=== PATIENT | male | born 1955 | race Caucasian/White ===

== ENCOUNTER 2019-02-12 23:09 | Emergency (ER) | payer MEDICARE, OTHER ==
[2019-02-12] MEDS ORDERED: Nitrostat 0.4 MG (ED) SL ONE (23:14)
[2019-02-12] MEDS ORDERED: BABY ASPIRIN 81 MG CHEW PO ONE (23:14)
--- NOTE | 2019-02-12 23:21 | ERPHSYRPT ---
- History of Present Illness Time Seen by Provider: 02/12/19 23:13 Historian: patient, family (64-year-old gentleman with a history of present reflux here for chest pain. Patient states his pain started when he was listening to music on the lawn about 45 minutes ago. By the time he got to the ER chest pain was almost resolved. Currently rates it as a 2/10. It was also associated with shortness of breath earlier. None right now. Denies any cardiac history no hypertension diabetes mellitus. Patient quit smoking cigarettes and only smokes cigars at this time. No lightheadedness dizziness. Mild nausea with it. He is due to have his esophagus dilated.) Exam Limitations: no limitations Timing/Duration: today Activities at Onset: none Aspirin Treatment Today: no aspirin today Allergies/Adverse Reactions: No Known Drug Allergies Allergy (Verified 02/12/19 23:34) Home Medications: Omeprazole 20 mg PO DAILY 02/12/19 [History] - Review of Systems Constitutional: No Symptoms Eyes: No Symptoms Ears, Nose, & Throat: No Symptoms Respiratory: Dyspnea Cardiac: Chest Pain Abdominal/Gastrointestinal: No Symptoms Genitourinary Symptoms: No Symptoms Musculoskeletal: No Symptoms Skin: No Symptoms Neurological: No Symptoms Psychological: No Symptoms Endocrine: No Symptoms - Past Medical History Neurological History: No Pertinent History ENT History: No Pertinent History Cardiac History: No Pertinent History Respiratory History: No Pertinent History Endocrine Medical History: No Pertinent History Musculoskeletal History: No Pertinent History GI Medical History: Other (esophageal varices) History: No Pertinent History - Past Surgical History Neuro Surgical History: No Pertinent History Cardiac: No Pertinent History Respiratory: No Pertinent History - Social History Smoking Status: Current every day smoker Patient Lives Alone: No () Significant Family History: no pertinent family hx - Nursing Vital Signs Nursing Vital Signs: Initial Vital Signs Pulse Rate 80 02/12/19 23:11 Respiratory Rate 20 02/12/19 23:11 Blood Pressure 154/85 02/12/19 23:11 O2 Sat by Pulse Oximetry 100 02/12/19 23:11 Pain Scale Pain Intensity 0 - Physical Exam General Appearance: no apparent distress Eye Exam: PERRL/EOMI Ears, Nose, Throat Exam: normal ENT inspection Neck Exam: normal inspection Respiratory Exam: normal breath sounds, No chest tenderness Cardiovascular Exam: regular rate/rhythm, normal heart sounds, normal peripheral pulses Gastrointestinal/Abdomen Exam: soft, normal bowel sounds, No tenderness Back Exam: normal inspection Extremity Exam: normal inspection Neurologic Exam: alert, oriented x 3, cooperative Skin Exam: normal color, warm, dry - Course EKG Interpreted by Me: RATE, Sinus Rhythm, Other (ekg done at 11:12 shows comp RBBB. QR 130, prolonged. rvh.HR 88bpm) Ordered Tests: Active Orders 24 hr Category Date Time Status Feeder Associate STAT Care 02/12/19 23:14 Active EKG-ER Only STAT Care 02/12/19 23:14 Active IV Insertion STAT Care 02/12/19 23:21 Active CHEST 1 VIEW (PORTABLE) Stat Exams 02/12/19 23:14 Taken CBC W DIFF Stat Lab 02/12/19 23:22 Completed CMP Stat Lab 02/12/19 23:22 Completed TROPONIN Q3H Lab 02/12/19 23:22 Completed TROPONIN Q3H Lab 02/13/19 05:16 Completed Medication Summary Discontinued Medications Generic Name Dose Route Start Last Admin Trade Name Freq PRN Reason Stop Dose Admin Al Hydrox/Mg Hydrox/Simethicone Confirm 02/13/19 00:06 Maalox Es 30 Ml Unit Dose Administered 02/13/19 00:07 Dose 30 ml .ROUTE .STK-MED ONE Aspirin 324 mg 02/12/19 23:14 02/12/19 23:20 Baby Aspirin 81 Mg Chew PO 02/12/19 23:15 324 mg STAT ONE Administration Lidocaine HCl Confirm 02/13/19 00:06 Xylocaine Hcl Viscous * Administered 02/13/19 00:07 Dose 15 ml .ROUTE .STK-MED ONE Magnesium Hydroxide 45 ml 02/13/19 00:04 02/13/19 00:10 Gi Cocktail 45 Ml (Maalox/Lidocaine) PO 02/13/19 00:05 45 ml STAT ONE Administration Nitroglycerin 0.4 mg 02/12/19 23:14 02/12/19 23:22 Nitrostat 0.4 Mg (Ed) SL 02/12/19 23:15 0.4 mg STAT ONE Administration Lab/Rad Data: Laboratory Result Diagrams 02/12/19 23:22 02/12/19 23:22 Laboratory Results 02/13/19 02/12/19 02/12/19 Range/Units 05:16 23:22 23:22 WBC (4.0-10.5) K/mm3 RBC (4.1-5.6) M/mm3 Hgb (12.5-18.0) gm/dl Hct (42-50) % MCV (78-100) fl MCH (26-32) pg MCHC (32-36) g/dl RDW (11.5-14.0) % Plt Count (150-450) K/mm3 MPV (6-9.5) fl Gran % (36.0-66.0) % Eos # (Auto) (0-0.5) Absolute Lymphs (auto) (1.0-4.6) Absolute Monos (auto) (0.0-1.3) Lymphocytes % (24.0-44.0) % Monocytes % (0.0-12.0) % Eosinophils % (0.00-5.0) % Basophils % (0.0-0.4) % Absolute Granulocytes (1.4-6.9) Basophils # (0-0.4) Sodium 143 (137-145) mmol/L Potassium 3.9 (3.5-5.1) mmol/L Chloride 112 H (98-107) mmol/L Carbon Dioxide 22 (22-30) mmol/L Anion Gap 12.9 (5-15) MEQ/L BUN 17 (9-20) mg/dL Creatinine 1.21 (0.66-1.25) mg/dL Estimated GFR > 60.0 ML/MIN Glucose 104 (74-106) mg/dL Calcium 8.9 (8.4-10.2) mg/dL Total Bilirubin 0.30 (0.2-1.3) mg/dL AST 24 (17-59) U/L ALT 15 (0-50) U/L Alkaline Phosphatase 69 (38-126) U/L Troponin I < 0.012 < 0.012 (0.000-0.034) ng/mL Serum Total Protein 7.6 (6.3-8.2) g/dL Albumin 4.1 (3.5-5.0) g/dL 02/12/19 Range/Units 23:22 WBC 12.9 H (4.0-10.5) K/mm3 RBC 4.08 L (4.1-5.6) M/mm3 Hgb 13.1 (12.5-18.0) gm/dl Hct 39.4 L (42-50) % MCV 96.6 (78-100) fl MCH 32.1 H (26-32) pg MCHC 33.2 (32-36) g/dl RDW 15.0 H (11.5-14.0) % Plt Count 194 (150-450) K/mm3 MPV 9.5 (6-9.5) fl Gran % 72.3 H (36.0-66.0) % Eos # (Auto) 0.22 (0-0.5) Absolute Lymphs (auto) 2.66 (1.0-4.6) Absolute Monos (auto) 0.64 (0.0-1.3) Lymphocytes % 20.6 L (24.0-44.0) % Monocytes % 5.0 (0.0-12.0) % Eosinophils % 1.7 (0.00-5.0) % Basophils % 0.4 (0.0-0.4) % Absolute Granulocytes 9.34 H (1.4-6.9) Basophils # 0.05 (0-0.4) Sodium (137-145) mmol/L Potassium (3.5-5.1) mmol/L Chloride (98-107) mmol/L Carbon Dioxide (22-30) mmol/L Anion Gap (5-15) MEQ/L BUN (9-20) mg/dL Creatinine (0.66-1.25) mg/dL Estimated GFR ML/MIN Glucose (74-106) mg/dL Calcium (8.4-10.2) mg/dL Total Bilirubin (0.2-1.3) mg/dL AST (17-59) U/L ALT (0-50) U/L Alkaline Phosphatase (38-126) U/L Troponin I (0.000-0.034) ng/mL Serum Total Protein (6.3-8.2) g/dL Albumin (3.5-5.0) g/dL - Progress Progress: improved (11:35 pm- asa 324 given. cp free before he got the first nitro, was still given. vitals stable/ if troponin negative I will watch him for another 6 hours and repeat troponin. ), re-examined (5:45 am-pt hasnt had any cp. repeat troponin neg. most likely related to barretts. will need to f/u with pcp/project control manager for possible stress test. rec no smoking. asa 81 daily) Air Movement: good Progress Note: 02/13/19 05:50 Blood Culture(s) Obtained: No Antibiotics given: No Will see patient in: other Counseled pt/family regarding: lab results, diagnosis, need for follow-up, rad results, smoking cessation - Departure Departure Disposition: Home Clinical Impression: Gonzales esophagus Chest pain Qualifiers: Chest pain type: unspecified Qualified Code(s): R07.9 - Chest pain, unspecified Condition: Stable Critical Care Time: No Referrals: DOCTOR,NO FAMILY [Primary Care Provider] -
[2019-02-12 23:25] LABS: BASOPHIL % 0.4 % (0.0-0.4); Basophil (Absolute #) 0.05 (0-0.4); Eosinophil % 1.7 % (0.00-5.0); Eosinophil (Absolute #) 0.22 (0-0.5); Granulocyte Absolute (ANC) 9.34 (1.4-6.9); Granulocytes % 72.3 % (36.0-66.0); Hematocrit 39.4 % (42-50); Hemoglobin 13.1 gm/dl (12.5-18.0); Lymphocyte (Absolute #) 2.66 (1.0-4.6); Lymphocytes % 20.6 % (24.0-44.0); Mean Cell Volume 96.6 fl (78-100); Mean Corpuscular Hemoglobin 32.1 pg (26-32); Mean Corpuscular Hgb Concent. 33.2 g/dl (32-36); Mean Platelet Volume 9.5 fl (6-9.5); Monocyte (Absolute #) 0.64 (0.0-1.3); Platelet Count 194 K/mm3 (150-450); Red Blood Count 4.08 M/mm3 (4.1-5.6); White Blood Count 12.9 K/mm3 (4.0-10.5)
[2019-02-12 23:36] LABS: ALBUMIN 4.1 g/dL (3.5-5.0); ALKALINE PHOSPHATASE 69 U/L (38-126); ANION GAP 12.9 MEQ/L (5-15); BLOOD UREA NITROGEN 17 mg/dL (9-20); CHLORIDE 112 mmol/L (98-107); Calcium 8.9 mg/dL (8.4-10.2); Carbon Dioxide 22 mmol/L (22-30); Creatinine 1 1.21 mg/dL (0.66-1.25); Glucose 104 mg/dL (74-106); Potassium 3.9 mmol/L (3.5-5.1); SGOT/AST 24 U/L (17-59); SGPT/ALT 15 U/L (0-50); SODIUM 143 mmol/L (137-145); Total Protein 7.6 g/dL (6.3-8.2)
[2019-02-13] MEDS ORDERED: GI COCKTAIL 45 ML (Maalox/Lidocaine) PO ONE (00:04)
[2019-02-13] MEDS ORDERED: XYLOCAINE HCl Viscous ONE (00:06)
[2019-02-13] MEDS ORDERED: MAALOX ES 30 ML UNIT DOSE ONE (00:06)
[2019-02-13 04:51] VITALS: BP 103/67
[2019-02-13 06:02] VITALS: PULSE 70; O2SAT 97
--- NOTE | 2019-02-13 10:54 | XRAY ---
Indication: Chest pain. Comparison: None Portable chest is clear. Heart and mediastinal structures within normal limits. Bony thorax intact with mild degenerative changes. Impression: Nonacute chest.
== END 2019-02-13 06:01 | disposition home or self-care (01) ==
LOC: ED 23:09
DX: K22.70 Barrett's esophagus without dysplasia (principal); R07.9 Chest pain, unspecified
CPT/HCPCS: 36000; 36415; 71045; 80053; 84484; 85025; 93005; 93041; 99284; A9270-GY